=== PATIENT | female | born 1995 | race Caucasian/White ===

== ENCOUNTER 2018-05-15 08:22 | Emergency (ER) | payer OTHER, SELFPAY ==
[2018-05-15 08:23] VITALS: BP 139/98; PULSE 86; RESP 18; TEMP 36.6; O2SAT 98; BMI 26.6
[2018-05-15 09:35] LABS: Absolute Lymphocyte Count 1.39 X10^3/ul (0.83-4.51); Absolute Neutrophil Count 5.8 X10^3/uL (2.0-7.7); Basophil# 0.03 X10^3/uL; Basophil% 0.4 % (0-1); Eosinophil# 0.11 X10^3/uL; Eosinophils% 1.4 % (0-5); Hematocrit 45.2 % (37-47); Hemoglobin 15.3 g/dl (12.0-15.0); Lymphocyte # 1.39 X10^3/ul (4.0); Lymphocyte % 18.3 % (19-41); Mean Corp Hgb Conc 33.8 g/gl (32-36); Mean Corpuscular Hgb 30.6 pg (27.0-32.0); Mean Corpuscular Volume 90.4 fL (81-99); Mean Platelet Vol. 8.9 fl (6.2-12.0); Monocyte# 0.27 X10^3/uL; Monocyte% 3.6 % (0-10); Neutrophil # 5.77 X10^3/uL (2.7-7.7); Platelet Count 358 K/mm3 (150-450); RBC Distribution Width CV 12.3 % (11.6-14.6); RBC Distribution Width SD 40.3 fl (35.1-43.9); White Blood Count 7.6 K/mm3 (4.4-11.0)
[2018-05-15 09:39] LABS: Anion Gap 12 (5-15); BUN 11 mg/dL (7-18); BUN/Creat Ratio 11.8 RATIO (10-20); Calcium,Total 9.3 mg/dL (8.5-10.1); Chloride 107 mmol/L (98-107); Creatinine, Serum 0.93 mg/dL (0.55-1.02); EST Glomerular Filtration Rate 79 mL/min (>60); Est Glom Filt Rate - Afr Amer 96 mL/min (>60); Estimated Creatinine Clearance 88.07 ml/min; Glucose 94 mg/dL (74-106); Potassium 3.7 mmol/L (3.5-5.1); Sodium Level 140 mmol/L (136-145)
[2018-05-15 09:44] LABS: POSITIVE COUNT NO; POSITIVE DIFFERENTIAL NO; POSITIVE MORPHOLOGY NO
[2018-05-15 09:45] LABS: Amphetamine Urine VISTA NEGATIVE (<1000 ng/mL); Barbiturate Urine VISTA NEGATIVE (< 200 ng/mL); Benzodiazepine Urine VISTA NEGATIVE (< 200 ng/mL); Cocaine Urine VISTA NEGATIVE (< 300 ng/mL); Ecstacy Urine VISTA POSITIVE (< 500 ng/mL); Methadone Urine VISTA NEGATIVE (< 300 ng/mL); PCP Urine VISTA NEGATIVE (< 25 ng/mL); THC Urine VISTA NEGATIVE (< 50 ng/mL); Vista UDS pH Range 7
[2018-05-15 09:54] VITALS: RESP 16
--- NOTE | 2018-05-15 09:55 | NURSING ---
CALLING [facility], TALKED TO SADE. SHE WILL CALL BACK WITH A TIME
[2018-05-15 09:57] LABS: Alcohol, Blood (Medical)-Serum < 3.0 mg/dL
[2018-05-15 10:08] LABS: Pregnancy, Serum, hCG Quali. NEGATIVE Negative (0-9 Nonpreg)
--- NOTE | 2018-05-15 10:21 | NURSING ---
MAGNOLIA STUART, WILL BE HERE IN ABOUT 15 MIN
[2018-05-15 10:26] VITALS: RESP 16
--- NOTE | 2018-05-15 10:45 | NURSING ---
SADE, [facility], HERE
--- NOTE | 2018-05-15 12:16 | ED.VISSUMM ---
- ER Visit Summary Date of Service: 05/15/18 Chief Complaint: Depression History of Present Illness: The patient is a 22 F with a history of depression presenting with increased depression and anxiety several weeks. She denies thoughts of self-harm. No thoughts of suicide at all, just anxiety and depression. She is having difficulty functioning at work and school. She denies recent medication changes or any recent major family/financial stress. No hallucinations. Physical Examination: Vitals are within normal limits. She is not in distress. Neck is supple. Heart tones are regular and without murmur. Lungs are clear bilaterally. Abdomen is soft and nontender. No focal or lateralizing neuro findings. She is completely awake and alert and answering questions properly. Thought content is normal. Mood is depressed. Affect is congruent. She has good insight into her problem. She denies suicidal thoughts or ideation. Test Results: Medical screening labs within normal limits Emergency Department Course and Treatment: She was evaluated by crisis. She adamantly denies any thoughts of self-harm. She was not felt to be a suicide risk by the crisis professional her family does not feel that she is at risk for suicide. A safety plan was made and she was made a counseling appointment in 2 days. Her family is comfortable taking her home. She does not appear to require inpatient psychiatric treatment at this time. Treatment Plan: [] Disposition: Home stable condition Impression: Initial encounter depression without suicidal ideation This note was generated with [employer] dictation software. It may contain incorrect words, spelling, and punctuation that were not noted in review of the chart prior to signing ED Disposition - Plan for ED Patient: Chief Complaint: Suicidal Instructions: ED Depression Referrals: Verónica De Los Santos MD [Primary Care Provider] - Additional Instructions: Keep your counseling appointment
[2018-05-15 12:17] VITALS: BP 140/94; PULSE 79; RESP 18; O2SAT 99
--- NOTE | 2018-05-15 12:20 | ED.DCSUM_ITS ---
- ER Visit Summary Date of Service: 05/15/18 Chief Complaint: Depression History of Present Illness: The patient is a 22 F with a history of depression presenting with increased depression and anxiety several weeks. She denies thoughts of self-harm. No thoughts of suicide at all, just anxiety and depressi on. She is having difficulty functioning at work and school. She denies recent medication changes or any recent major family/financial stress. No hallucinations. Physical Examination: Vitals are within normal limits. She is not in distress. Neck is supple. Heart tones are regular and without murmur. Lungs are clear bilaterally. Abdomen is soft and nontender. No focal or lateralizing neuro findings. She is completely awake and alert and answering questions properly. Thought content is normal. Mood is depressed. Affect is congruent. She has good insight into her problem. She denies suicidal thoughts or ideation. Test Results: Medical screening labs within normal limits Emergency Department Course and Treatment: She was evaluated by crisis. She adamantly denies any thoughts of self-harm. She was not felt to be a suicide risk by the crisis professional her family does not feel that she is at risk for suicide. A safety plan was made and she was made a counseling appointment in 2 days. Her family is comfortable taking her home. She does not appear to require inpatient psychiatric treatment at this time. Treatment Plan: [] Disposition: Home stable condition Impression: Initial encounter depression without suicidal ideation This note was generated with [employer] dictation software. It may contain incorrect words, spelling, and punctuation that were not noted in review of the chart prior to signing ED Disposition - Plan for ED Patient: Chief Complaint: Suicidal Instructions: ED Depression Referrals: Verónica De Los Santos MD [Primary Care Provider] - Additional Instructions: Keep your counseling appointment
[2018-05-15 12:29] VITALS: BP 140/94; PULSE 84; RESP 18; O2SAT 99
== END 2018-05-15 12:31 | disposition home or self-care (01) ==
PROVIDERS: Emergency Provider Emergency Medicine; Family Provider Family Medicine; PCP Family Medicine
DX: F32.9 Major depressive disorder, single episode, unspecified (principal); F41.9 Anxiety disorder, unspecified
CPT/HCPCS: 80048; 80307; 80320; 84703; 85025; 99283; G0480

== ENCOUNTER 2018-08-28 17:42 | Emergency (ER) | payer OTHER, SELFPAY ==
[2018-08-28 17:47] VITALS: BP 143/89; PULSE 103; RESP 14; TEMP 36.8; O2SAT 99; BMI 28.1
[2018-08-28 18:20] LABS: Anion Gap 11 (5-15); BUN 12 mg/dL (7-18); BUN/Creat Ratio 14.9 RATIO (10-20); Calcium,Total 9.2 mg/dL (8.5-10.1); Chloride 107 mmol/L (98-107); Creatinine, Serum 0.81 mg/dL (0.55-1.02); EST Glomerular Filtration Rate 93 mL/min (>60); Est Glom Filt Rate - Afr Amer 112 mL/min (>60); Estimated Creatinine Clearance 105.04 ml/min; Glucose 93 mg/dL (74-106); Potassium 3.6 mmol/L (3.5-5.1); Sodium Level 140 mmol/L (136-145)
[2018-08-28 18:24] LABS: Amphetamine Urine VISTA NEGATIVE (<1000 ng/mL); Barbiturate Urine VISTA NEGATIVE (< 200 ng/mL); Benzodiazepine Urine VISTA NEGATIVE (< 200 ng/mL); Cocaine Urine VISTA NEGATIVE (< 300 ng/mL); Ecstacy Urine VISTA NEGATIVE (< 500 ng/mL); Methadone Urine VISTA NEGATIVE (< 300 ng/mL); PCP Urine VISTA NEGATIVE (< 25 ng/mL); THC Urine VISTA NEGATIVE (< 50 ng/mL); Vista UDS pH Range 7
[2018-08-28 18:30] LABS: Absolute Lymphocyte Count 2.12 X10^3/ul (0.83-4.51); Absolute Neutrophil Count 4.1 X10^3/uL (2.0-7.7); Basophil# 0.04 X10^3/uL; Basophil% 0.6 % (0-1); Eosinophil# 0.14 X10^3/uL; Hematocrit 48.1 % (37-47); Hemoglobin 15.7 g/dl (12.0-15.0); Lymphocyte # 2.12 X10^3/ul (4.0); Lymphocyte % 30.6 % (19-41); Mean Corp Hgb Conc 32.6 g/gl (32-36); Mean Corpuscular Hgb 30.4 pg (27.0-32.0); Mean Platelet Vol. 9.1 fl (6.2-12.0); Monocyte# 0.48 X10^3/uL; Monocyte% 6.9 % (0-10); Neutrophil # 4.13 X10^3/uL (2.7-7.7); Neutrophil % 59.6 % (47-70); Platelet Count 339 K/mm3 (150-450); RBC Distribution Width CV 12.4 % (11.6-14.6); RBC Distribution Width SD 42.1 fl (35.1-43.9); Red Blood Count 5.17 M/mm3 (4.2-5.4); White Blood Count 6.9 K/mm3 (4.4-11.0)
[2018-08-28 18:31] LABS: POSITIVE COUNT NO; POSITIVE DIFFERENTIAL NO; POSITIVE MORPHOLOGY NO
[2018-08-28 18:42] VITALS: BP 124/69; PULSE 86; RESP 18; O2SAT 99
--- NOTE | 2018-08-28 18:48 | ED.VISSUMM ---
- ER Visit Summary Date of Service: 08/28/18 Chief Complaint: Depression, suicidal ideation History of Present Illness: The patient is a 22 F presenting with depression, suicidal ideation. Patient states this has been ongoing for the past 2 weeks and progressively worsening. She is under a lot of stress with school. She has had suicidal thoughts with plan to overdose or shoot herself with a gun. She does have access to a gun. No past suicide attempts. She was seen by the counseling center today and sent to the ED for further evaluation. Physical Examination: Vitals are stable. Patient is afebrile. Alert no acute distress. HEENT exam is unremarkable. Neck is supple. Lungs are clear and equal bilaterally. Heart is regular rate and rhythm. Abdomen is soft nontender nondistended. Extremities are unremarkable. Skin is warm and dry. No focal neurologic deficit. Depression, suicidal ideation Remainder of exam is unremarkable. Emergency Department Course and Treatment: CBC, chemistries unremarkable. Tox negative. Alcohol negative. HCG negative. Discussed with the counseling center for evaluation. Disposition: Per counseling center Impression: Suicidal ideation This note was generated with [employer] dictation software. It may contain incorrect words, spelling, and punctuation that were not noted in review of the chart prior to signing ED Disposition - Plan for ED Patient: Referrals: Verónica De Los Santos MD [Primary Care Provider] -
[2018-08-28 19:00] VITALS: PULSE 82; RESP 18; O2SAT 98
[2018-08-28 19:20] LABS: Pregnancy, Serum, hCG Quali. NEGATIVE Negative (0-9 Nonpreg)
[2018-08-28 22:00] VITALS: BP 130/85; PULSE 91; RESP 18; TEMP 36.7; O2SAT 96
[2018-08-28] MEDS: Acetaminophen 500 MG Tablet 1000 MG PO (22:29)
[2018-08-28 23:09] VITALS: RESP 18
[2018-08-29] VITALS (11 sets, daily range): BP systolic 128–134; BP diastolic 68–89; PULSE 82–117; RESP 12–18; TEMP 36.7; O2SAT 97–98
--- NOTE | 2018-08-29 06:10 | ED.RN ---
SITTER REMAINS AT THE BEDSIDE.PT APPEARS TO BE ASLEEP,RESP EVEN.WAITING FOR [facility] TRANSPORT PT.
--- NOTE | 2018-08-29 08:29 | ED.RN ---
[facility] WILL BE COMING FOR PATIENT AT 1600 TO TAKE TO [facility]
[2018-08-29] MEDS: Sertraline 50 MG Tablet 25 MG PO (09:38)
--- NOTE | 2018-08-29 17:03 | ED.RN ---
I CALLED [facility] AT 16:50 TO SEE WHERE THEY WERE BECAUSE THEIR ETA WAS 16:00 AND I HAVENT HEARD FROM THEM. DISPATCH SAID THEY WERE IN [place] AND WOULD BE HEADING UP TO [facility] SHORTLY. THIS IS VERY FRUSTRATING AGAIN WITH [facility]. THEY WERE CALLED LAST NIGHT TO TAKE THE PATIENT AND THEY SAID CALL BACK IN THE AM BUT WE HAVE IT ON THE BOOK. I CALLED AND THEY SAID THEY KNEW NOTHING ABOUT THE TRANSFER AND WOULD NOT BE ABLE TO TAKE THEM UNTIL 16:00. THE PATIENTS FAMILY HAS BEEN NICE AND PATIENT ALL DAY. THIS PATIENT WAS ACCEPTED AND READY TO GO EARLY THIS AM AND HAD TO WAIT ALL DAY FOR A SQUAD. [facility]OON
--- NOTE | 2018-08-29 17:38 | ED.RN ---
[facility] GOT HERE FOR PATIENT AT 17:40. THEY WERE 1 HR 40 MIN. LATE. THE [facility] SAID THIS WAS SCHEDULED FOR 8:00 AM THIS AM AND GOT BUMPED ALL DAY. HE WAS VERY FRUSTRATED.
== END 2018-08-29 17:38 ==
LOC: ED 18:26
PROVIDERS: Emergency Provider Emergency Medicine; Family Provider Family Medicine; PCP Family Medicine
DX: R45.851 Suicidal ideations (principal); F32.9 Major depressive disorder, single episode, unspecified; F41.9 Anxiety disorder, unspecified
CPT/HCPCS: 80048; 80307; 80320; 84703; 85025; 99284; G0480

== ENCOUNTER 2019-03-21 07:21 | Emergency (ER) | payer OTHER, MEDICAID, SELFPAY ==
[2019-03-21 07:22] VITALS: BP 143/76; PULSE 99; RESP 16; TEMP 36.4; O2SAT 98; BMI 31.4
--- NOTE | 2019-03-21 07:29 | ED.VIS.GEN ---
History of Present Illness Chief Complaint: Suicidal Informant: Patient Onset: Days Context: Gradual Onset Timing: Continuous Current Severity: Moderate Maximum Severity: Severe Narrative: The patient has a history of bipolar disorder. She presents to the emergency department with increasing suicidal thoughts. She states over the past few weeks, she is been struggling with this but it has gotten more intrusive. She states that she keeps having thoughts about wanting to harm herself and she has nothing left to live for. She is on Risperdal. She recently had Lexapro added about a week ago, but was still feeling suicidal prior to the addition of this medication. The patient has been hospitalized before for suicidality. At this point, she does not have a specific plan. She states that just is been interfering with her normal functioning. She denies any drug or alcohol use. Prior similar symptoms: Yes Recent Illness/Hospitalization: No Past Medical History - Allergies and Home Meds Allergies/Adverse Reactions: Allergies No Known Allergies Allergy (Verified 03/21/19 07:21) Primary Care Physician: Verónica De Los Santos MD [Primary Care Provider] - Prior records reviewed: Yes Past Medical History: - - Bipolar disorder Smoking Status: Never smoker Review of Systems General: Denies: Chills, Fever, Sweats Eyes: Denies: Visual changes - bilaterally, Diplopia ENT: Denies: Rhinorrhea, Sore throat Cardiovascular: Denies: Chest pain, Palpitations Respiratory: Denies: Dyspnea, Cough, Dyspnea on exertion Gastrointestinal: Denies: Abdominal pain, Nausea, Vomiting, Diarrhea, Melena, Hematochezia Genitourinary: Denies: Dysuria, Hematuria, Frequency Musculoskeletal: Denies: Back pain, Extremity Pain Skin: Denies: Rash, Wounds Neurological: Denies: Headache, Weakness, Numbness Psych: Reports: Depression, Suicidal thoughts, Suicidal ideations Physical Exam Vital Signs/Narrative: Vital Signs Temp Pulse Resp BP Pulse Ox 03/21/19 07:22 97.6 F L 99 16 143/76 H 98 Inital Vital Signs reviewed: Yes General: Well nourished, Well developed, No Acute Distress Head: Normocephalic, Atraumatic Eyes: Perrl, EOMI ENT: Moist mucous membranes, No rhinorrhea Neck: Supple, Nontender Cardiovascular: Regular rate, Regular rhythm, No murmurs Respiratory: No distress, CTA bilaterally, Chest nontender Abdomen: Soft, Nontender, Nondistended, Normal bowel sounds Back: Nontender, Normal Inspection Extremities: Nontender, No edema Skin: Normal color, No rash Neurological: Alert, Oriented x3, Cranial nerves II-XII grossly intact, Normal Strength, Normal Sensation Psychological: Depressed, Tearful Diagnostic/Tx/Re-eval Abnormal Lab Results 03/21/19 03/21/19 03/21/19 07:52 07:52 07:52 WBC 5.6 RBC 5.06 Hgb 15.4 H Hct 46.6 MCV 92.1 MCH 30.4 MCHC 33.0 RDW Std Deviation 40.6 RDW Coeff of Angelia 11.9 Plt Count 298 MPV 8.6 Immature Gran % (Auto) 0.200 Neut % (Auto) 56.9 Lymph % (Auto) 32.4 [place] % (Auto) 6.7 Eos % (Auto) 2.7 Baso % (Auto) 1.1 H Absolute Neuts (auto) 3.2 Absolute Lymphs (auto) 1.80 Nucleated RBC % 0 Sodium 138 Potassium 3.8 Chloride 108 H Carbon Dioxide 21.0 Anion Gap 9 BUN 7 Creatinine 0.79 Estim Creat Clear Calc 102.80 Est GFR (MDRD) Af Amer 114 Est GFR (MDRD) Non-Af 94 BUN/Creatinine Ratio 8.8 L Glucose 106 Calcium 9.2 Serum , Qual Urine Opiates Screen Urine Methadone Screen Ur Barbiturates Screen Ur Phencyclidine Scrn Ur Amphetamines Screen U Methamphetamin-MDMA U Benzodiazepines Scrn Urine Cocaine Screen U Cannabinoids Screen Ur Drug Screen Comment Ethyl Alcohol Cancelled 03/21/19 03/21/19 03/21/19 07:52 07:52 08:52 WBC RBC Hgb Hct MCV MCH MCHC RDW Std Deviation RDW Coeff of Angelia Plt Count MPV Immature Gran % (Auto) Neut % (Auto) Lymph % (Auto) [place] % (Auto) Eos % (Auto) Baso % (Auto) Absolute Neuts (auto) Absolute Lymphs (auto) Nucleated RBC % Sodium Potassium Chloride Carbon Dioxide Anion Gap BUN Creatinine Estim Creat Clear Calc Est GFR (MDRD) Af Amer Est GFR (MDRD) Non-Af BUN/Creatinine Ratio Glucose Calcium Serum , Qual NEGATIVE Urine Opiates Screen NEGATIVE Urine Methadone Screen NEGATIVE Ur Barbiturates Screen NEGATIVE Ur Phencyclidine Scrn NEGATIVE Ur Amphetamines Screen NEGATIVE U Methamphetamin-MDMA NEGATIVE U Benzodiazepines Scrn NEGATIVE Urine Cocaine Screen NEGATIVE U Cannabinoids Screen NEGATIVE Ur Drug Screen Comment Ethyl Alcohol < 3.0 - Medical Decision Making The patient presents with increasing suicidal thoughts. She does not have any specific plan, but she will not contract for safety.-All of her medications because she is worried that she will take them and overdose. She underwent medical screening examination. At this point, she is medically cleared. After discussion with highway maintenance crew worker and evaluation, it was felt the patient would best be served with inpatient hospitalization given her increasing suicidality. Impression 1. Suicidal ideation ED Disposition - Plan for ED Patient: Referrals: Verónica De Los Santos MD [Primary Care Provider] -
[2019-03-21 08:01] LABS: Absolute Neutrophil Count 3.2 X10^3/uL (2.0-7.7); Basophil# 0.06 X10^3/uL; Basophil% 1.1 % (0-1); Eosinophil# 0.15 X10^3/uL; Eosinophils% 2.7 % (0-5); Hematocrit 46.6 % (37-47); Hemoglobin 15.4 g/dL (12.0-15.0); Lymphocyte % 32.4 % (19-41); Mean Corpuscular Hgb 30.4 pg (27.0-32.0); Mean Corpuscular Volume 92.1 fL (81-99); Mean Platelet Vol. 8.6 fl (6.2-12.0); Monocyte# 0.37 X10^3/uL; Monocyte% 6.7 % (0-10); NRBC Flagged by Analyzer 0 % (0-5); Neutrophil # 3.16 X10^3/uL (2.7-7.7); Neutrophil % 56.9 % (47-70); Platelet Count 298 K/mm3 (150-450); RBC Distribution Width CV 11.9 % (11.6-14.6); RBC Distribution Width SD 40.6 fl (35.1-43.9); Red Blood Count 5.06 M/mm3 (4.2-5.4); White Blood Count 5.6 K/mm3 (4.4-11.0)
[2019-03-21 08:11] LABS: Anion Gap 9 (5-15); BUN 7 mg/dL (7-18); BUN/Creat Ratio 8.8 RATIO (10-20); Calcium,Total 9.2 mg/dL (8.5-10.1); Chloride 108 mmol/L (98-107); Creatinine, Serum 0.79 mg/dL (0.55-1.02); EST Glomerular Filtration Rate 94 mL/min (>60); Est Glom Filt Rate - Afr Amer 114 mL/min (>60); Glucose 106 mg/dL (74-106); Potassium 3.8 mmol/L (3.5-5.1); Sodium Level 138 mmol/L (136-145)
[2019-03-21 08:14] LABS: Amphetamine Urine VISTA NEGATIVE (<1000 ng/mL); Barbiturate Urine VISTA NEGATIVE (< 200 ng/mL); Benzodiazepine Urine VISTA NEGATIVE (< 200 ng/mL); Cocaine Urine VISTA NEGATIVE (< 300 ng/mL); Ecstacy Urine VISTA NEGATIVE (< 500 ng/mL); Methadone Urine VISTA NEGATIVE (< 300 ng/mL); PCP Urine VISTA NEGATIVE (< 25 ng/mL); THC Urine VISTA NEGATIVE (< 50 ng/mL); Vista UDS pH Range 5
--- NOTE | 2019-03-21 08:29 | NURSING ---
RED TOP, ALCOHOL , NEEDS REDRAWN
[2019-03-21 08:37] LABS: Internal QC Validated? YES +Cl - CLEAR BKGD; Pregnancy, Serum, hCG Quali. NEGATIVE Negative
[2019-03-21 09:19] LABS: Alcohol, Blood (Medical)-Serum < 3.0 mg/dL
--- NOTE | 2019-03-21 09:24 | NURSING ---
CALLED [facility], THEY WILL BE HERE SOON POSSIBLE
[2019-03-21 10:02] VITALS: PULSE 87; RESP 16; O2SAT 99
[2019-03-21 13:26] VITALS: BP 138/80; PULSE 85; RESP 14; O2SAT 98
[2019-03-21] MEDS: Ibuprofen 600 MG Tablet PO (13:56)
--- NOTE | 2019-03-21 14:48 | NURSING ---
ACCEPTED AT [facility], 1600 UNIT NURSE TO NURSE [phone] LAUREN ATT[address] DR DASILVA
--- NOTE | 2019-03-21 15:10 | NURSING ---
CALLED [facility] FOR TRANSPORT, NONE TODAY CALLED [facility] FOR TRANSPORT. ETA IS FROM [place]
[2019-03-21 15:11] VITALS: BP 138/80; PULSE 85; RESP 14; O2SAT 98
[2019-03-21] MEDS: LORazepam 1 MG Tablet PO (15:17)
[2019-03-21 15:18] VITALS: RESP 16
== END 2019-03-21 15:48 ==
PROVIDERS: Emergency Provider Emergency Medicine; Family Provider Family Medicine; PCP Family Medicine
DX: R45.851 Suicidal ideations (principal); F31.9 Bipolar disorder, unspecified
CPT/HCPCS: 80048; 80307; 80320; 84703; 85025; 99285; G0480

== ENCOUNTER 2019-05-23 23:08 | Emergency (ER) | payer OTHER, SELFPAY ==
[2019-05-23 23:11] VITALS: BP 125/91; PULSE 92; RESP 16; TEMP 37.1; O2SAT 95; BMI 31.6
--- NOTE | 2019-05-23 23:22 | ED.RN ---
pt denies SI at this time. States she said she wanted to during a fight with her boyfriend. pt states she said those things out of anger and did not really mean them. Pt denies any safety concerns for her at home. Denies any thoughts of wanting to harm or kill herself.
--- NOTE | 2019-05-23 23:33 | ED.VIS.PSYCH ---
History of Present Illness Chief Complaint: Mental Health Informant: Patient, Family Onset: Today Context: Sudden Onset Conflict: - - verbal argument w/ boyfriend Timing: Continuous Current Severity: Gone Maximum Severity: Moderate Worsened by: Situational factors Associated Symptoms: Negative for: Change in Eating, Change in sleeping, Hopelessness, Suicidal Thoughts, Agitated, Angry, Hostile, Visual Hallucinations, Auditory Hallucinations Specific plan (suicidal thought): none Narrative: Patient was having an argument with her boyfriend laurel, said that she wanted to . Boyfriend called 911 had a concern for her safety. She has a history of mental health, takes an antidepressant, routinely seen at the counseling center, and has been admitted for suicidality in the past. She has not been drinking tonight, does not do any drugs, has been compliant with her antidepressant and had taken no more than prescribed tonight. She denies being suicidal at this time and states it was regretful, it made in the heat of the moment of the argument. Spoken to separately, her boyfriend confirms this. When asked if she could be manipulating us to discharge her home so that she could kill herself, he does not think this will happen. They have spoken since being brought to the ER prior to my evaluation and they feel they have worked things out and they both prefer to be discharged home at this time. - Past Medical History (1) Depression Status: Chronic Past Medical History - Allergies and Home Meds Allergies/Adverse Reactions: Allergies No Known Allergies Allergy (Verified 05/23/19 23:20) Primary Care Physician: Verónica De Los Santos MD [Primary Care Provider] - Lives: Spouse/ Significant Other Smoking Status: Never smoker Drugs: None Review of Systems General: Denies: Chills, Fever, Sweats Eyes: Denies: Visual changes - bilaterally, Diplopia ENT: Denies: Rhinorrhea, Sore throat Cardiovascular: Denies: Chest pain, Palpitations Respiratory: Reports: Cough. Denies: Dyspnea, Sputum, Dyspnea on exertion Gastrointestinal: Denies: Abdominal pain, Nausea, Vomiting, Diarrhea, Melena, Hematochezia Genitourinary: Denies: Dysuria, Hematuria, Frequency Musculoskeletal: Denies: Neck pain, Back pain, Extremity Pain Skin: Denies: Rash, Wounds Neurological: Denies: Headache, Weakness, Numbness Psych: Reports: Depression. Denies: Suicidal thoughts, Suicidal ideations Physical Exam Vital Signs/Narrative: Vital Signs Temp Pulse Resp BP Pulse Ox 05/23/19 23:11 98.7 F 92 16 125/91 H 95 Inital Vital Signs reviewed: Yes General: Well nourished, Well developed, - - NAD Head: Normocephalic, Atraumatic Eyes: Perrl, EOMI ENT: Moist mucous membranes, No rhinorrhea Neck: Supple, Nontender, No lymphadenopathy Cardiovascular: Regular rate, Regular rhythm, No murmurs Respiratory: No distress, CTA bilaterally, Chest nontender Abdomen: Soft, Nontender, Nondistended, Normal bowel sounds Back: Nontender, Normal Inspection Extremities: Nontender, No Edema Skin: Normal color, No rash, No Trauma Neurological: Alert, Oriented x3, Cranial nerves II-XII grossly intact, Normal Strength, Normal Sensation, Normal Gait Psych: Normal Speech Pattern, Logical sequential goal directed thoughts, No suicidal or homicidal ideation, Normal Stable Appropriate Affect, Good Insight, Good Judgement, Normal Appearance - and good eye contact Diagnostic/Tx/Re-eval I am comfortable with the boyfriend taking her home. The patient was questioned separately, there is no suspicion for abuse here tonight. She corroborates her story separately, and is comfortable calling crisis if she needs to, comfortable following up with her counselor, and additionally tells us if I was feeling suicidal I would tell you because I would want help, but I am not and I feel better now. ED Disposition - Plan for ED Patient: Disposition: Home or Assisted Living Diagnosis: Acute reaction to situational stress Instructions: Responding Better to Stress Referrals: Counseling,Center [GROUP OF PHYSICIANS] - As Needed
--- NOTE | 2019-05-23 23:34 | ED.RN ---
Dr Curtis at bedside for assessment. Dr Curtis does not feel patient is suicidal and feels that patient is safe to be discharged home with boyfriend and friend. patient and boyfriend is in agreement with this plan. Pt understands to call crisis or 911 if she becomes suicidal or feels unsafe. pt verbalizes understanding.
== END 2019-05-24 00:03 | disposition home or self-care (01) ==
PROVIDERS: Emergency Provider Emergency Medicine; Family Provider Family Medicine; PCP Family Medicine
DX: F43.0 Acute stress reaction (principal); R45.851 Suicidal ideations; F32.9 Major depressive disorder, single episode, unspecified
CPT/HCPCS: 99285

== ENCOUNTER 2019-08-11 12:32 | Emergency (ER) | payer OTHER, MEDICAID, SELFPAY ==
[2019-08-11 12:33] VITALS: BP 127/92; PULSE 125; RESP 17; TEMP 37.4; O2SAT 97; BMI 31.1
--- NOTE | 2019-08-11 13:20 | ED.DCSUM_ITS ---
History of Present Illness Chief Complaint: Suicidal Informant: Patient Onset: Weeks - 1 Context: Gradual Onset Timing: Continuous Current Severity: Moderate Maximum Severity: Moderate Worsened by: Situational factors Associated Symptoms: Depressed, Hopelessness, Suicidal Thoughts Specific plan (suicidal thought): no plan or active ideation Narrative: Patient had a routine appointment with her counselor at the counseling center today, they caught her before hand and asked her if she felt safe and she felt obligated to see no, so she was referred to the emergency department for further evaluation. Patient states she has been having really vivid, bad dreams lately that are telling her that she is useless and hopeless, more depressing thoughts. It has been making her have thoughts of suicide lately without any specific plan or active intent but she states that the dreams seem to be the major issue. She has battled with depression for a long time, she has been on Lexapro for it but it was not working and show several weeks ago with discontinued and she was started on Risperdal and Abilify instead. She denies any physical illness lately or head injury or neck swelling/pain. States she has been tested for thyroid issues in the past and the tests have turned out normal. - Past Medical History (1) Depression Status: Chronic Past Medical History - Allergies and Home Meds Allergies/Adverse Reactions: Allergies No Known Allergies Allergy (Verified 08/11/19 12:33) Primary Care Physician: Verónica De Los Santos MD [Primary Care Provider] - Lives: Spouse/ Significant Other Smoking Status: Never smoker Drugs: None Review of Systems General: Denies: Chills, Fever, Sweats Eyes: Denies: Visual changes - bilaterally, Diplopia ENT: Denies: Rhinorrhea, Sore throat Cardiovascular: Denies: Chest pain, Palpitations Respiratory: Denies: Dyspnea, Cough, Dyspnea on exertion Gastrointestinal: Denies: Abdominal pain, Nausea, Vomiting, Diarrhea, Melena, Hematochezia Genitourinary: Denies: Dysuria, Hematuria, Frequency Musculoskeletal: Denies: Back pain, Extremity Pain Skin: Denies: Rash, Wounds Neurological: Denies: Headache, Weakness, Numbness Psych: Reports: Depression, Suicidal thoughts. Denies: Suicidal ideations Physical Exam Vital Signs/Narrative: Vital Signs Temp Pulse Resp BP Pulse Ox 08/11/19 12:33 99.4 F H 125 H 17 127/92 H 97 Inital Vital Signs reviewed: Yes General: Well nourished, Well developed, - - Well-appearing, cooperative, conversive, no acute distress Head: Normocephalic, Atraumatic Eyes: Perrl, EOMI ENT: Moist mucous membranes, No rhinorrhea Neck: Supple, Nontender Cardiovascular: Regular rate, Regular rhythm, No murmurs Respiratory: No distress, CTA bilaterally, Chest nontender Abdomen: Soft, Nontender, Nondistended, Normal bowel sounds Back: Nontender, Normal Inspection Extremities: Nontender, No Edema Skin: Normal color, No rash Neurological: Alert, Oriented x3, Cranial nerves II-XII grossly intact, Normal Strength, Normal Sensation Psych: Normal Speech Pattern, Logical sequential goal directed thoughts, No suicidal or homicidal ideation, Good Insight, Good Judgement, Normal Appearance, Suicidal thoughts Diagnostic/Tx/Re-eval Social work interviewed the patient. After lengthy evaluation, she and the both sign a safety contract. She is comfortable going home. They both agree that she can visit her at work if she feels she is really needing to talk to somebody in a pinch. His work is local. She also has Vistaril at home to use as needed, but she has not been using any of it. Therefore she was educated on using that as well if she needs to. She is going to be seen by behavioral health tomorrow and the counseling center the next day. We discussed reasons to return. ED Disposition - Plan for ED Patient: Disposition: Home or Assisted Living Diagnosis: Depression, Suicidal thoughts Instructions: CONTRACT, No Harm, Depression Referrals: Verónica De Los Santos MD [Primary Care Provider] - Behavioral,Health [facility] [GROUP OF PHYSICIANS] - Keep [facility] appointment Counseling,Center [GROUP OF PHYSICIANS] - Keep [facility] appointment
[2019-08-11 13:33] VITALS: RESP 16
[2019-08-11 14:00] VITALS: RESP 16
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
--- NOTE | 2019-08-14 13:35 | CM.ED ---
Social Work Telephone call to patient for follow-up. Patient stating to have attended intake appointment on 08/12/2019 with Behavioral health and plans to start to program tomorrow. Roma SUAREZ, BLADE
== END 2019-08-11 14:08 | disposition home or self-care (01) ==
PROVIDERS: Emergency Provider Emergency Medicine; PCP Family Medicine
DX: F32.9 Major depressive disorder, single episode, unspecified (principal); R45.851 Suicidal ideations; Z79.899 Other long term (current) drug therapy
CPT/HCPCS: 99282

== ENCOUNTER 2019-08-18 09:00 | Outpatient (RCR) | payer OTHER, SELFPAY ==
--- NOTE | 2019-08-18 09:00 | BH.COMM_ITS ---
Communication Note - Communication with Client Communication Note: Met with patient to complete intial paperwork No significant changes since pre-admission screening. Completed [place] Suicide screening. Moderate risk to self. Denied active suicidal ideations, plan, or intent. No hx of attempts. Notes SI on 08/10/19 which she presentedf to the ER. Fleeting SI 2-5 times a week. Protective factors are big deterent.
--- NOTE | 2019-08-18 09:05 | BH.SGPN.GN ---
Behaviors/Verbalizations/Mental Status: []Pt alert and orient x3. Eye contact fair to good. Motor activity is appropriate. Appearance is casual. Speech is Appropriate. Mood is depressed, anxious. Affect is congruent. Thoughts are linear and logical. No evidence of psychosis. Reviewed daily check in sheet and pt reports score of 4/5 for suicidal ideations and 2/5 for intent. Baseline unknown as pt first day in program. Willing to follow-up with program schedule clerk for further risk assessment. Client Response/Progress/Benefit: []Pt attentive throughout session. Actively listening throughout. Upon her turn to share with the group she became tearful and opted not to participate. Appearing to benefit from support provided by group. Pt recommended continued IOP tx to reduce anxiety and depression, improve emotion regulation, and maintain safety. Narrative Note: []
--- NOTE | 2019-08-18 10:05 | BH.COMM_ITS ---
Communication Note - Communication with Client Communication Note: Pt was tearful after first group and attempted to leave the facility. She was stopped by therapist and brought to this therapist's office. Tearful. States that she does not want to be here. When asked where she wants to be she states in the hospital. Verbalized SI with plan to OD on her medications. She did not verbalize this earlier during the [place] screening. Reports that group was overhwelming and states that she is hopeless and feels that she will not get better. She would not elaborate much more. Collateral from staff indicates that group was uneventful. This therapist walked pt over to the ER and provided report. Recommended inpatient admission.
--- NOTE | 2019-08-18 14:13 | BH.DS ---
Discharge Summary - Demographics Date of Admission:: 08/18/19 Discharge Date: 08/18/19 Presenting Problems at Admission:: Pt is a 23 year old female with reported hx of Bipolar 2 disorder. Hx of two previous psychiatric admissions in 08/2018 and 02/2019. Referred to IOP by [facility] ER after crisis assessment on 08/11/2019. Presented to ER on 08/11/19 with fleeting suicidal ideations which began a day prior. Reports intrusive images of her father's as the triggering event. Pt's father in 02/2019 and has been having difficulty coping. Negative thoughts and fleeting suicidal ideations which she reports are more passive in nature I don't want to exist. Reports that they were more frequent and intense which led to presenting to the ER. Depression and anxiety began to impact functioning at home and work. Due to poor work performance her hours were cut which also impacts her financially. Endorses two panic attacks in the past 2 weeks. Endorses ruminations, poor concentration, hopelessness, helplessness, and anhedonia. Denies HI or psychosis. Denies substance abuse. No hx of suicide attempts. Medication and treatment compliant. Currently lives with BF who is supportive. Reports feeling low and unsafe at times. Due to recent ER evaluation, fleeting suicidal ideations, and MH interfering with functioning recommended IOP. Discharge Diagnoses:: F31.81, Bipolar 2 Reason for Discharge:: Pt was discharged to a higher level of care. Reported SI with plan and was escorted by staff to the ER for evaluation and placement at psychiatric facility - Treatment Progress During Treatment & Response: No progress noted. Pt only attended one IOP group.Pt was tearful after first group and attempted to leave the facility. She was stopped by therapist and brought to this therapist's office. Tearful. States that she does not want to be here. When asked where she wants to be she states in the hospital. Verbalized SI with plan to OD on her medications. She did not verbalize this earlier during the [place] screening. Reports that group was overhwelming and states that she is hopeless and feels that she will not get better in the outaptient setting. She would not elaborate much more. Collateral from staff indicates that group was uneventful. This therapist walked pt over to the ER and provided report. Recommended inpatient admission. Issues Still to be Addressed:: Depression, Anxiety, poor coping skills, grief, suicidal ideations, inability to function due to MH symptoms Discharge Recommendations/Instructions:: Recommended to be placed in inpatient psychiatric facility Discharge Handout: Complete Discharge Handout with client on aftercare options and continuity of care.
== END 2019-08-18 10:30 | disposition short-term general hospital (02) ==
LOC: BHIOP 09:00
PROVIDERS: PCP Family Medicine; Referring Provider Psychiatry & Neurology Psychiatry; Visit Provider Psychiatry & Neurology Psychiatry
DX: F31.81 Bipolar II disorder (principal)
CPT/HCPCS: H0035; 90853

== ENCOUNTER 2019-08-18 10:23 | Emergency (ER) | payer OTHER, MEDICAID, SELFPAY ==
[2019-08-18 10:24] VITALS: BP 134/95; PULSE 133; RESP 18; TEMP 36.1; O2SAT 99; BMI 30.7
[2019-08-18 11:13] LABS: Absolute Lymphocyte Count 1.54 X10^3/uL (0.83-4.51); Absolute Neutrophil Count 3.8 X10^3/uL (2.0-7.7); Basophil# 0.05 X10^3/uL; Basophil% 0.8 % (0-1); Eosinophil# 0.13 X10^3/uL; Eosinophils% 2.2 % (0-5); Hematocrit 46.2 % (37-47); Hemoglobin 15.7 g/dL (12.0-15.0); Lymphocyte # 1.54 X10^3/ul (4.0); Lymphocyte % 26.1 % (19-41); Mean Corpuscular Hgb 30.9 pg (27.0-32.0); Mean Corpuscular Volume 90.9 fL (81-99); Mean Platelet Vol. 8.8 fl (6.2-12.0); Monocyte# 0.33 X10^3/uL; Monocyte% 5.6 % (0-10); NRBC Flagged by Analyzer 0 % (0-5); Neutrophil # 3.82 X10^3/uL (2.7-7.7); Platelet Count 351 K/mm3 (150-450); RBC Distribution Width CV 11.8 % (11.6-14.6); Red Blood Count 5.08 M/mm3 (4.2-5.4); White Blood Count 5.9 K/mm3 (4.4-11.0)
--- NOTE | 2019-08-18 11:14 | ED.DCSUM_ITS ---
- ER Visit Summary Date of Service: 08/18/19 Chief Complaint: Suicidal ideation History of Present Illness: The patient is a 23 F presenting with suicidal ideation. She states this has been ongoing for the past week. She was seen in the ED 1 week ago. At that time she was seen by the counselor and discharged with a safety contract. She states that she still continues to be suicidal. She followed up with outpatient program today. She states that it was not a good fit. She was brought over by the counselor because they felt she was unsafe to go home. She has had thoughts of overdosing. She denies other complaints. Physical Examination: Vitals are stable. Patient is afebrile. Alert no acute distress. HEENT exam is unremarkable. Neck is supple. Lungs are clear and equal bilaterally. Heart is regular rate and rhythm. Abdomen is soft nontender nondistended. Extremities are unremarkable. Skin is warm and dry. No focal neurologic deficit. Depressed affect, suicidal ideation Remainder of exam is unremarkable. Emergency Department Course and Treatment: CBC, chemistries unremarkable. hCG negative. Tox and alcohol are negative. Patient was evaluated by the family welfare social work professor in the ED. Disposition: Per social work Impression: Suicidal ideation This note was generated with [employer] dictation software. It may contain incorrect words, spelling, and punctuation that were not noted in review of the chart prior to signing ED Disposition - Plan for ED Patient: Referrals: Verónica De Los Santos MD [Primary Care Provider] -
[2019-08-18 11:24] LABS: Internal QC Validated? YES +Cl - CLEAR BKGD; Pregnancy, Serum, hCG Quali. NEGATIVE Negative
[2019-08-18 11:26] LABS: Amphetamine Urine VISTA NEGATIVE (<1000 ng/mL); Anion Gap 9 (5-15); BUN 9 mg/dL (7-18); BUN/Creat Ratio 10.5 RATIO (10-20); Barbiturate Urine VISTA NEGATIVE (< 200 ng/mL); Benzodiazepine Urine VISTA NEGATIVE (< 200 ng/mL); Calcium,Total 9.5 mg/dL (8.5-10.1); Chloride 108 mmol/L (98-107); Cocaine Urine VISTA NEGATIVE (< 300 ng/mL); Creatinine, Serum 0.86 mg/dL (0.55-1.02); EST Glomerular Filtration Rate 86 mL/min (>60); Ecstacy Urine VISTA NEGATIVE (< 500 ng/mL); Est Glom Filt Rate - Afr Amer 104 mL/min (>60); Estimated Creatinine Clearance 94.43 ml/min; Glucose 106 mg/dL (74-106); Methadone Urine VISTA NEGATIVE (< 300 ng/mL); PCP Urine VISTA NEGATIVE (< 25 ng/mL); Potassium 3.8 mmol/L (3.5-5.1); Sodium Level 140 mmol/L (136-145); THC Urine VISTA NEGATIVE (< 50 ng/mL); Vista UDS pH Range 5
[2019-08-18 11:41] LABS: Alcohol, Blood (Medical)-Serum < 3.0 mg/dL
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
--- NOTE | 2019-08-18 12:02 | CM.ED ---
Social Work Telephone call to [facility] (intake). Referral made. There are open beds and they do accept patient insurance. Clinical information faxed. Pending response. Roma SUAREZ, BLADE
--- NOTE | 2019-08-18 13:08 | CM.ED ---
Social Work Telephone call from [facility] Leon, patient has been accepted. Accepting physician: Dr. Jessica Tobin. Nurse to nurse report: [phone]. Admitting to [address] [place] [address]. Updated patient and medical team. All agreeable to plan. [place] faxed to [facility]irae Leon. Roma SUAREZ, BLADE
[2019-08-18 13:37] VITALS: BP 127/88; PULSE 112; RESP 16; O2SAT 98
--- NOTE | 2019-08-18 15:11 | ED.RN ---
JANETH JIN TOOK KEYS AND WALLET PER PT REQUEST.
== END 2019-08-18 15:15 ==
LOC: ED 10:51
PROVIDERS: Emergency Provider Emergency Medicine; PCP Family Medicine
DX: R45.851 Suicidal ideations (principal); F31.9 Bipolar disorder, unspecified; F41.9 Anxiety disorder, unspecified
CPT/HCPCS: 80048; 80307; 80320; 84703; 85025; 99284; G0480

== ENCOUNTER → 2019-10-31 20:16 | Outpatient (CLI) | payer MEDICAID, SELFPAY | PROVIDERS: PCP Family Medicine; Referring Provider Family Medicine; Visit Provider Family Medicine | DX: G47.10 Hypersomnia, unspecified (principal); G47.30 Sleep apnea, unspecified | CPT/HCPCS: 95810 ==

== ENCOUNTER 2019-12-12 12:51 | Emergency (ER) | payer MEDICAID, SELFPAY ==
[2019-12-12 12:52] VITALS: BP 113/76; PULSE 100; RESP 18; TEMP 36.6; O2SAT 97; BMI 31.9
--- NOTE | 2019-12-12 13:20 | ED.DCSUM_ITS ---
- ER Visit Summary Date of Service: 12/12/19 Chief Complaint: Intermittent dizziness History of Present Illness: The patient is a 24 F history of underlying depression and recently started 2 months ago on atenolol for hypertension. Patient states she has had intermittent dizziness which she describes as li ghtheadedness and near syncope for the last 2 days. She denies any headache, chest pain, shortness of breath, abdominal pain. She denies any nausea, vomiting or diarrhea. Denies any dysuria. Denies any fever or chills. States her last menstrual period was November 16. She denies any vaginal bleeding or discharge. Physical Examination: Well-appearing 24-year-old female no acute distress vital signs stable afebrile. Her blood pressure is 113/76 and her pulse ox 97% on room air no hypoxia. HEENT exam normal. No trauma. Pupils round reactive light. Normal speech. Moist mucous membranes. Neck nontender no lymphadenopathy. Lungs clear to auscultation bilaterally. Heart regular rhythm no murmur. Abdomen soft nontender normal bowel sounds no peritoneal signs. Remedies moves all 4. Calves nontender no edema no cords. Neurologically she is awake alert with no focal motor deficits. NIH score is 0. Fingertip to nose and [id number] all within normal limits. Equal symmetrical splash line operator strength and dorsi and plantar flexion. Test Results: None Emergency Department Course and Treatment: Patient has a completely normal exam. She has had recent testing that was unremarkable. She will log her blood pressures at home and follow-up with her primary care physician. Treatment Plan: Outpatient follow-up. Log blood pressures twice daily. Disposition: Discharge Impression: Transient lightheadedness of uncertain etiology History of hypertension History of depression This note was generated with [employer] ([email or web address]) dictation software. It may contain incorrect words, spelling, and punctuation that were not noted in review of the chart prior to signing ED Disposition - Plan for ED Patient: Referrals: Verónica De Los Santos MD [Primary Care Provider] -
--- NOTE | 2019-12-12 13:23 | ED.DEP ---
ED Disposition - Plan for ED Patient: Disposition: Home or Assisted Living Instructions: ED Dizziness UKO Referrals: Verónica De Los Sanots MD [Primary Care Provider] - 1 Week Additional Instructions: Check and log your blood pressures twice daily for the next week. Call and follow-up with your doctor next week. She will read the blood pressure readings to determine if she may or may not need to adjust your blood pressure medication.
[2019-12-12 13:51] VITALS: RESP 16
== END 2019-12-12 13:51 | disposition home or self-care (01) ==
PROVIDERS: Emergency Provider Emergency Medicine; PCP Family Medicine
DX: R42 Dizziness and giddiness (principal); F32.9 Major depressive disorder, single episode, unspecified; I10 Essential (primary) hypertension
CPT/HCPCS: 99282

== ENCOUNTER 2019-12-29 17:51 | Emergency (ER) | payer MEDICAID, SELFPAY ==
[2019-12-29 17:52] VITALS: BP 127/89; PULSE 125; RESP 18; TEMP 36.4; O2SAT 98; BMI 31.4
[2019-12-29 18:15] VITALS: BP 119/87; PULSE 96; RESP 17; O2SAT 96
--- NOTE | 2019-12-29 18:39 | EKG12_ITS ---
Test Reason : CHEST PAIN Blood Pressure : / mmHG Vent. Rate : 101 BPM Atrial Rate : 101 BPM P-R Int : 114 ms QRS Dur : 084 ms QT Int : 332 ms P-R-T Axes : 031 050 -11 degrees QTc Int : 430 ms Sinus tachycardia Nonspecific T wave abnormality Abnormal ECG Confirmed by ANAHI SOTO, SENTHIL ([id number]), greeting card editor RICARDO ZAMORA ([id number]) on 12/31/2019 10:12:37 AM Referred By: MARSHALL Confirmed By:SENTHIL CHRISTIAN MD
--- NOTE | 2019-12-29 19:28 | RAD_ITS ---
STUDY: X-RAY CHEST REASON FOR EXAM: Female, 24 years old. Dizziness TECHNIQUE: Frontal view of the chest COMPARISON: None. FINDINGS: The lungs are clear. There are no pleural effusions. There is no pneumothorax. The heart is normal in size. The visualized osseous structures are within normal limits. RAD/Chest 1 View (Portable) IMPRESSION: No acute thoracic pathology. Electronically Signed: Daniel Toscano, at 19:57 EDT Tel , Service support ,
[2019-12-29 20:15] LABS: AST(SGOT) 49 U/L (15-37); Alanine Aminotransfer ALT/SGPT 76 U/L (13-56); Albumin, Serum 3.7 g/dL (3.2-5.0); Alkaline Phosphatase 86 U/L (45-117); Anion Gap 8 (5-15); BUN 7 mg/dL (7-18); BUN/Creat Ratio 9.2 RATIO (10-20); Chloride 109 mmol/L (98-107); Creatinine, Serum 0.76 mg/dL (0.55-1.02); EST Glomerular Filtration Rate 98 mL/min (>60); Est Glom Filt Rate - Afr Amer 118 mL/min (>60); Estimated Creatinine Clearance 105.93 ml/min; Globulin 3.7 g/dL (2.2-4.2); Glucose 89 mg/dL (74-106); Protein, Total 7.4 g/dL (6.4-8.2); Sodium Level 139 mmol/L (136-145)
[2019-12-29 20:20] LABS: Absolute Lymphocyte Count 2.42 X10^3/uL (0.83-4.51); Absolute Neutrophil Count 5.3 X10^3/uL (2.0-7.7); Basophil# 0.04 X10^3/uL; Basophil% 0.5 % (0-1); Eosinophil# 0.11 X10^3/uL; Eosinophils% 1.3 % (0-5); Hematocrit 42.2 % (37-47); Hemoglobin 14.2 g/dL (12.0-15.0); Lymphocyte # 2.42 X10^3/ul (4.0); Lymphocyte % 28.9 % (19-41); Mean Corp Hgb Conc 33.6 g/dL (32-36); Mean Corpuscular Hgb 31.1 pg (27.0-32.0); Mean Corpuscular Volume 92.3 fL (81-99); Mean Platelet Vol. 8.8 fl (6.2-12.0); Monocyte# 0.46 X10^3/uL; Monocyte% 5.5 % (0-10); NRBC Flagged by Analyzer 0 % (0-5); Neutrophil # 5.33 X10^3/uL (2.7-7.7); Neutrophil % 63.6 % (47-70); Platelet Count 355 K/mm3 (150-450); RBC Distribution Width CV 11.7 % (11.6-14.6); RBC Distribution Width SD 39.5 fl (35.1-43.9); Red Blood Count 4.57 M/mm3 (4.2-5.4); White Blood Count 8.4 K/mm3 (4.4-11.0)
[2019-12-29 20:32] LABS: D-Dimer Quantitative (DVT/PE) 0.32 FEU/ug/m (0.27-0.49)
[2019-12-29 20:48] LABS: Internal QC Validated? YES +Cl - CLEAR BKGD; Pregnancy, Serum, hCG Quali. NEGATIVE Negative
[2019-12-29] MEDS: Aspirin 81 MG TAB.CHEW 324 MG PO (20:52)
[2019-12-29 21:14] VITALS: BP 122/90; BP 124/88; BP 135/95; PULSE 103; PULSE 120; PULSE 94
[2019-12-29 21:24] LABS: Mucous, Urine 0 SEEN /hpf (<or=2+); Red Blood Cells-Urine 0 SEEN /hpf (0-5); White Blood Cells 0 SEEN /hpf (0-5)
[2019-12-29 21:29] LABS: Color, Urine Yellow (Yellow); Glucose, Dipstick Normal (Normal); Ketone-Dipstick Negative (Negative); Leukocyte Esterase-Dipstick Negative /ul (Negative); Nitrite-Dipstick Negative (Negative); Occult Blood-Urine Negative /ul (Negative); Protein-Dipstick Negative (Negative); Urine Bilirubin Dipstick Negative (Negative); Urine Clarity Clear (Clear); Urine Urobilinogen Normal (Normal)
[2019-12-29 21:39] LABS: Bacteria 1+ /hpf (None Seen); Squamous Epithelial Cells - UA 0-5 SEEN /hpf (5-10)
--- NOTE | 2019-12-29 22:25 | ED.VISSUMM ---
- ER Visit Summary Date of Service: 12/29/19 Chief Complaint: Near syncope History of Present Illness: The patient is a 24 F who presents with a near syncopal episode that occurred at work. Patient states she has had a couple prior episodes that occurred while she was at work. Patient states she felt lightheaded and felt like she was going to pass out. Patient states she felt her heart racing. Patient admits to some nausea and vomiting. Patient states she felt hot. Patient states she also felt weak. Patient admits to a headache. Patient denies any chest pain or shortness of breath. Patient has a history of hypertension, anxiety, depression, and bipolar disorder. Physical Examination: Vital signs are stable except for mild tachycardia of 125. Patient is afebrile. Patient is in no acute distress. Oral mucosa is pink and moist. Neck is supple. Trachea is midline. There is no JVD noted. Heart was regular rate and rhythm. Lungs are clear and equal bilaterally. Abdomen is soft. Bowel sounds are normal. There is no tenderness. There is no rebound or guarding noted. Skin is warm dry. Cranial nerves II through XII are intact. There are no focal motor or sensory deficits noted. Extremities are intact. There is no calf tenderness or edema. Test Results: EKG showed normal sinus rhythm with a rate of 101. There are nonspecific ST-T wave changes. There are no prior EKGs available for comparison. CBC, comprehensive metabolic profile, urinalysis, d-dimer, serum hCG, and troponin were obtained were all within normal limits. Chest x-ray was obtained. There is no acute cardiopulmonary process. This was interpreted by the radiologist and myself. Emergency Department Course and Treatment: Patient was given IV fluids. Patient was given aspirin. Orthostatic vital signs were obtained were within normal limits. Patient was feeling better on reevaluation. Patient was advised of her findings. Patient was instructed to follow-up with her primary care physician for further evaluation. Patient was advised that she may need to see either a neurologist or supervisor type bar and segment for further evaluation if her symptoms persist. Patient understood and was agreeable with the plan. All questions were answered. Disposition: Discharge home Impression: Near syncope This note was generated with [employer] dictation software. It may contain incorrect words, spelling, and punctuation that were not noted in review of the chart prior to signing ED Disposition - Plan for ED Patient: Disposition: Home or Assisted Living Diagnosis: Near syncope Instructions: ED Near-Fainting Uncertain Cause Referrals: Verónica De Los Santos MD [Primary Care Provider] - 5-7 Days
[2019-12-29 22:40] VITALS: BP 122/78; PULSE 85; RESP 22; O2SAT 98
== END 2019-12-29 22:44 | disposition home or self-care (01) ==
PROVIDERS: Emergency Provider Emergency Medicine; PCP Family Medicine
DX: R55 Syncope and collapse (principal); R51 Headache; I10 Essential (primary) hypertension; F41.9 Anxiety disorder, unspecified; F31.9 Bipolar disorder, unspecified
CPT/HCPCS: 36415; 71045; 80053; 81001; 84703; 85025; 85379; 93005; 96360; 99284; A4216

== ENCOUNTER → 2020-01-08 13:27 | Outpatient (CLI) | payer MEDICAID, SELFPAY ==
[2019-12-29 17:52] VITALS: BMI 31.4
[2020-01-08 15:43] LABS: AST(SGOT) 52 U/L (15-37); Alanine Aminotransfer ALT/SGPT 85 U/L (13-56); Albumin, Serum 3.8 g/dL (3.2-5.0); Alkaline Phosphatase 91 U/L (45-117); Bilirubin, Direct 0.18 mg/dL (0.00-0.30); Globulin 3.7 g/dL (2.2-4.2); Protein, Total 7.5 g/dL (6.4-8.2); Thyroid Stim Hormone (TSH) 1.03 uIU/mL (0.358-3.74)
== END ==
PROVIDERS: PCP Family Medicine; Visit Provider Family Medicine
DX: R55 Syncope and collapse (principal); R74.8 Abnormal levels of other serum enzymes
CPT/HCPCS: 36415; 80076; 84443

== ENCOUNTER → 2020-02-26 14:09 | Outpatient (CLI) | payer MEDICAID, SELFPAY ==
--- NOTE | 2020-02-26 14:14 | US_ITS ---
STUDY: ULTRASOUND OF THE FEMALE PELVIS - COMPLETE REASON FOR EXAM: Female, 24 years old. PAIN IN VAGINAL CANAL LMP: 01/31/2020 TECHNIQUE: Transabdominal and Transvaginal TECHNICAL QUALITY: Adequate. COMPARISON: None. FINDINGS: The uterus is anteverted and is in a midline position. The uterus measures 5.6 cm x 3.2 cm x 2.7 cm. Normal uterine cervix. The endometrium measures 2.0 mm in thickness, and is hyperechoic. There is no demonstrated endometrial mass. There is no demonstrated myometrial mass. I.U.D. - The patient does not have an I.U.D. The right ovary is visualized. The right ovary measures 2 cm x 2.4 cm x 1.1 cm. There is no right ovarian cyst or ovarian mass. There is no visualized right adnexal mass or complex lesion. There is normal arterial and normal venous vascularity. The left ovary is non-visualized. There is minimal fluid in the cul-de-sac. The pre void volume of the bladder was 207 ml. Polycystic ovary disease: No. US/Transvaginal Non- IMPRESSION: Normal female pelvis. Electronically Signed: Cam Perdomo, at 15:35 EDT , Service support ,
--- NOTE | 2020-02-26 14:14 | US_ITS ---
STUDY: ULTRASOUND OF THE FEMALE PELVIS - COMPLETE REASON FOR EXAM: Female, 24 years old. PAIN IN VAGINAL CANAL LMP: 01/31/2020 TECHNIQUE: Transabdominal and Transvaginal TECHNICAL QUALITY: Adequate. COMPARISON: None. FINDINGS: The uterus is anteverted and is in a midline position. The uterus measures 5.6 cm x 3.2 cm x 2.7 cm. Normal uterine cervix. The endometrium measures 2.0 mm in thickness, and is hyperechoic. There is no demonstrated endometrial mass. There is no demonstrated myometrial mass. I.U.D. - The patient does not have an I.U.D. The right ovary is visualized. The right ovary measures 2 cm x 2.4 cm x 1.1 cm. There is no right ovarian cyst or ovarian mass. There is no visualized right adnexal mass or complex lesion. There is normal arterial and normal venous vascularity. The left ovary is non-visualized. There is minimal fluid in the cul-de-sac. The pre void volume of the bladder was 207 ml. Polycystic ovary disease: No. US/Pelvic (Non ) IMPRESSION: Normal female pelvis. Electronically Signed: Cam Perdomo, at 15:35 EDT , Service support ,
== END ==
PROVIDERS: PCP Family Medicine
DX: R10.2 Pelvic and perineal pain (principal)
CPT/HCPCS: 76830; 76856

== ENCOUNTER 2020-05-21 11:14 | Emergency (ER) | payer MEDICAID, SELFPAY ==
[2020-05-21 11:15] VITALS: BP 133/74; PULSE 109; RESP 16; TEMP 35.7; O2SAT 98; BMI 31.4
--- NOTE | 2020-05-21 11:28 | EKG12_ITS ---
Test Reason : CP Blood Pressure : / mmHG Vent. Rate : 100 BPM Atrial Rate : 100 BPM P-R Int : 128 ms QRS Dur : 090 ms QT Int : 346 ms P-R-T Axes : 036 046 -31 degrees QTc Int : 446 ms Normal sinus rhythm ST & T wave abnormality, consider inferior ischemia ST & T wave abnormality, consider anterolateral ischemia Abnormal ECG Confirmed by GABRIEL SOTO, RISHI ([id number]), publications editor CYNTHIA ANDERSON ([id number]) on 05/25/2020 9:05:27 AM Referred By: BARBIE Confirmed By:RISHI RIOS MD
--- NOTE | 2020-05-21 11:29 | ED.DCSUM_ITS ---
History of Present Illness Chief Complaint: Chest Pain Informant: Patient Onset: Yesterday, Hours Context: Sudden Onset Timing: Continuous Quality: Patient reports fever, chest pain and shortness of breath Location: Not applicable Current Severity: Mild Maximum Severity: Moderate Worsened by: Breathing Relieved by: Nothing Associated Symptoms: Documented temperature 100.4 ?F, shortness of breath Narrative: Patient is a 24-year-old who presents with chest discomfort that is mid sternal with a pleuritic component, shortness of breath and temperature of 100.4 ?F. Patient is on hormonal therapy. There is family history of DVT. She denies history of VTE. She does report mild nasal congestion and mild cough. She denies leg pain, swelling or discoloration. She denies nausea or vomiting. She reports soft watery stool. She denies dysuria, frequency, urgency or hematuria. Patient denies symptoms of . Patient denies double vision, blurred vision or loss of vision. She denies photophobia, neck pain or neck stiffness. Prior similar symptoms: No Recent Illness/Hospitalization: No - Past Medical History (1) Depression Status: Chronic Past Medical History - Allergies and Home Meds Allergies/Adverse Reactions: Allergies No Known Allergies Allergy (Verified 05/21/20 11:15) Primary Care Physician: Verónica De Los Santos MD [Primary Care Provider] - Prior records reviewed: No Surgical History: no surgical history Lives: Alone Smoking Status: Never smoker Alcohol: None Drugs: None Review of Systems General: Reports: Chills, Fever, Malaise. Denies: Subjective, Sweats Eyes: Denies: Visual changes - bilaterally, Blurred Vision - bilaterally ENT: Reports: Rhinorrhea. Denies: Bilateral ear pain, Sore throat Cardiovascular: Reports: Chest pain. Denies: Palpitations, Heart racing Respiratory: Reports: Dyspnea, Cough, Dyspnea on exertion. Denies: Orthopnea, Paroxysmal nocturnal dyspnea Gastrointestinal: Reports: Nausea. Denies: Abdominal pain, Vomiting, Diarrhea, Melena, Hematochezia Genitourinary: Denies: Dysuria, Hematuria Musculoskeletal: Denies: Myalgias, Arthralgias, Neck pain, Back pain, Swelling, Extremity Pain Skin: Denies: Rash, Wounds Neurological: Reports: Headache. Denies: Weakness, Parasthesia, Numbness Psych: Reports: Depression. Denies: Anxiety, Suicidal thoughts Hematologic: Denies: Easy bruising, Easy bleeding Physical Exam Vital Signs/Narrative: Vital Signs Temp Pulse Resp BP Pulse Ox 05/21/20 11:15 96.2 F L 109 H 16 133/74 H 98 Inital Vital Signs reviewed: Yes General: Well nourished, Well developed, Obese, No Acute Distress Head: Normocephalic, Atraumatic Eyes: Perrl, EOMI. Negative for: Pale conjunctiva, Scleral icterus ENT: Moist mucous membranes, No rhinorrhea Neck: Supple, Nontender Cardiovascular: Regular rhythm, No murmurs, Tachycardia Respiratory: No distress, CTA bilaterally, Chest nontender Abdomen: Soft, Nontender, Nondistended, Normal bowel sounds, No masses Back: Nontender, Normal Inspection Extremities: Nontender, No edema, - - There is no asymmetry, swelling, discoloration, leg vein distention, palpable cords or tenderness along the distribution of the deep venous system. Skin: No rash, Pallor. Negative for: Normal color, Cyanosis, Diaphoresis, Jaundice, No Trauma Neurological: Alert, Oriented x3, Cranial nerves II-XII grossly intact, Normal Strength, Normal Sensation, Normal DTR, - - There is no clonus or Babinski sign. Psychological: Normal Mood, Depressed Diagnostic/Tx/Re-eval Chest X-Ray - ED: 1 View, Read by ED Physician, Normal, Heart, Lungs, Mediastinum, Bony Structures, No Acute Disease, - - X ray interpreted by me at 1140. Impressions Chest X-Ray 05/21/20 11:40 IMPRESSION: No acute cardiopulmonary findings Electronically Signed: Roberto Carlos Grey DO at 11:49 EST Tel , Service support , 05/21/20 11:40 Chest 1 View (Portable) [RAD] Stat 05/21/20 12:00 Mucosa - Nose SARS-CoV-2 Antigen (Rapid) - Final Laboratory Results 05/21/20 05/21/20 05/21/20 13:20 13:20 13:20 WBC 5.2 RBC 4.58 Hgb 13.9 Hct 42.7 MCV 93.2 MCH 30.3 MCHC 32.6 RDW Std Deviation 41.4 RDW Coeff of Angelia 11.9 Plt Count 290 MPV 8.6 Immature Gran % (Auto) 0.400 Neut % (Auto) 75.6 H Lymph % (Auto) 13.5 L [place] % (Auto) 9.3 Eos % (Auto) 0.6 Baso % (Auto) 0.6 Absolute Neuts (auto) 3.9 Absolute Lymphs (auto) 0.70 L Nucleated RBC % 0 D-Dimer Quant (PE/DVT) 0.47 Sodium 140 Potassium 3.7 Chloride 109 H Carbon Dioxide 27.0 Anion Gap 4 L BUN 7 Creatinine 0.87 Estim Creat Clear Calc 92.54 Est GFR (MDRD) Af Amer 102 Est GFR (MDRD) Non-Af 84 BUN/Creatinine Ratio 8.1 L Glucose 102 Lactic Acid Calcium 9.5 Total Bilirubin 0.60 AST 192 H ALT 183 H Alkaline Phosphatase 91 Total Protein 7.7 Albumin 3.9 Globulin 3.8 Albumin/Globulin Ratio 1.0 05/21/20 13:20 WBC RBC Hgb Hct MCV MCH MCHC RDW Std Deviation RDW Coeff of Angelia Plt Count MPV Immature Gran % (Auto) Neut % (Auto) Lymph % (Auto) [place] % (Auto) Eos % (Auto) Baso % (Auto) Absolute Neuts (auto) Absolute Lymphs (auto) Nucleated RBC % D-Dimer Quant (PE/DVT) Sodium Potassium Chloride Carbon Dioxide Anion Gap BUN Creatinine Estim Creat Clear Calc Est GFR (MDRD) Af Amer Est GFR (MDRD) Non-Af BUN/Creatinine Ratio Glucose Lactic Acid 2.1 H* Calcium Total Bilirubin AST ALT Alkaline Phosphatase Total Protein Albumin Globulin Albumin/Globulin Ratio - EKG Initial EKG Interpretation: Sinus Rhythm - Sinus rhythm with a ventricular rate of 100. OR interval is 128. QRS duration 90 ms. QT duration 346 ms. Farley is normal. There is flipped T waves in the inferior as well as anterior leads. This is essentially unchanged from December 29, 2019. The T wave inversion is more prominent in V2 today comp Prior: Unchanged - Medical Decision Making Patient presents with symptoms that are concerning for viral infection and Covid, pulmonary embolus doubt coronary ischemia. Patient is not PERC negative; therefore, will obtain a D-dimer. Chest x-ray was obtained to rule in/rule out pulmonary etiology of her chest discomfort and fever. Basic metabolic panel was obtained to assess electrolytes and renal function. CBC to assess white count and H&H. Patient was informed of her test results. She was informed that this probably represents a viral infection. She was instructed follow-up with her doctor for repeat blood work in a week. ED Disposition - Plan for ED Patient: Disposition: Home or Assisted Living Diagnosis: Chest pain, Fever, Dyspnea, Lactic acidosis, Elevated liver transaminase level Instructions: ED Chest Pain NonCardiac, ED FUO Adult Referrals: Verónica De Los Santos MD [Primary Care Provider] - 3-5 Days if not improving Additional Instructions: 1. Take either 4 Advil every 8 hours for the next several days for the chest discomfort and fever or 2 Aleve every 12 hours for the next several days. 2. If your shortness of breath worsens or anything changes that concerns you return to the emergency department
--- NOTE | 2020-05-21 11:40 | RAD_ITS ---
STUDY: X-RAY CHEST REASON FOR EXAM: Female, 24 years old. CHEST PAIN TECHNIQUE: Single AP portable view of the chest. COMPARISON: None. FINDINGS: Body jewelry. Cardiac silhouette unremarkable. Pulmonary vascularity unremarkable. Aorta unremarkable. No focal patchy airspace opacities. No pleural effusions. Upper abdomen unremarkable. Osseous structures intact. No pneumothorax. RAD/Chest 1 View (Portable) IMPRESSION: No acute cardiopulmonary findings Electronically Signed: Roberto Carlos Grey DO at 11:49 EST Tel , Service support ,
[2020-05-21 13:34] VITALS: PULSE 91; RESP 14; O2SAT 96
[2020-05-21 13:38] LABS: Absolute Neutrophil Count 3.9 X10^3/uL (2.0-7.7); Basophil# 0.03 X10^3/uL; Basophil% 0.6 % (0-1); Eosinophil# 0.03 X10^3/uL; Eosinophils% 0.6 % (0-5); Hematocrit 42.7 % (37-47); Hemoglobin 13.9 g/dL (12.0-15.0); Lymphocyte % 13.5 % (19-41); Mean Corp Hgb Conc 32.6 g/dL (32-36); Mean Corpuscular Hgb 30.3 pg (27.0-32.0); Mean Corpuscular Volume 93.2 fL (81-99); Mean Platelet Vol. 8.6 fl (6.2-12.0); Monocyte# 0.48 X10^3/uL; Monocyte% 9.3 % (0-10); NRBC Flagged by Analyzer 0 % (0-5); Neutrophil # 3.91 X10^3/uL (2.7-7.7); Neutrophil % 75.6 % (47-70); Platelet Count 290 K/mm3 (150-450); RBC Distribution Width CV 11.9 % (11.6-14.6); RBC Distribution Width SD 41.4 fl (35.1-43.9); Red Blood Count 4.58 M/mm3 (4.2-5.4); White Blood Count 5.2 K/mm3 (4.4-11.0)
[2020-05-21 13:39] VITALS: BP 112/78; PULSE 91; RESP 14; O2SAT 96
[2020-05-21 13:48] LABS: D-Dimer Quantitative (DVT/PE) 0.47 FEU/ug/m (0.27-0.49)
[2020-05-21 13:56] LABS: AST(SGOT) 192 U/L (15-37); Alanine Aminotransfer ALT/SGPT 183 U/L (13-56); Albumin, Serum 3.9 g/dL (3.2-5.0); Alkaline Phosphatase 91 U/L (45-117); Anion Gap 4 (5-15); BUN 7 mg/dL (7-18); BUN/Creat Ratio 8.1 RATIO (10-20); Calcium,Total 9.5 mg/dL (8.5-10.1); Chloride 109 mmol/L (98-107); Creatinine, Serum 0.87 mg/dL (0.55-1.02); EST Glomerular Filtration Rate 84 mL/min (>60); Est Glom Filt Rate - Afr Amer 102 mL/min (>60); Estimated Creatinine Clearance 92.54 ml/min; Globulin 3.8 g/dL (2.2-4.2); Glucose 102 mg/dL (74-106); Potassium 3.7 mmol/L (3.5-5.1); Protein, Total 7.7 g/dL (6.4-8.2); Sodium Level 140 mmol/L (136-145)
[2020-05-21 14:04] LABS: Lactic Acid 2.1 mmol/L (0.4-1.9)
[2020-05-21 14:30] VITALS: BP 120/69; PULSE 85; RESP 16; O2SAT 99
[2020-05-21 17:32] LABS: Reflex Lactate? Y
== END 2020-05-21 14:31 | disposition home or self-care (01) ==
PROVIDERS: Emergency Provider Emergency Medicine; PCP Family Medicine
DX: R07.9 Chest pain, unspecified (principal); R50.9 Fever, unspecified; R06.00 Dyspnea, unspecified; E87.2 Acidosis; R74.01 Elevation of levels of liver transaminase levels; Z82.49 Family history of ischemic heart disease and other diseases of the circulatory system; F32.9 Major depressive disorder, single episode, unspecified; R05 Cough; R09.81 Nasal congestion; R06.02 Shortness of breath
CPT/HCPCS: 71045; 80053; 83605; 85025; 85379; 87040; 87426; 93005; 99285; A4216

== ENCOUNTER → 2020-10-04 15:00 | Outpatient (CLI) | payer MEDICAID, SELFPAY | PROVIDERS: PCP Family Medicine; Referring Provider Family Medicine; Visit Provider Family Medicine | DX: R30.0 Dysuria (principal) | CPT/HCPCS: 87086 ==

== ENCOUNTER → 2021-12-12 | Outpatient (CLI) | payer OTHER, SELFPAY ==
[2021-12-15 18:53] LABS: HPV Reflexed? NOT INDICATED
== END | disposition home or self-care (01) ==
LOC: LABSPEC 16:07
PROVIDERS: PCP Family Medicine; Visit Provider Obstetrics & Gynecology
DX: Z12.4 Encounter for screening for malignant neoplasm of cervix (principal)
CPT/HCPCS: 88175; G0145

== ENCOUNTER → 2022-04-03 | Outpatient (CLI) | payer OTHER, SELFPAY | END | disposition home or self-care (01) | LOC: SL 10:43 | PROVIDERS: PCP Family Medicine; Visit Provider Family Medicine | DX: Z00.00 Encounter for general adult medical examination without abnormal findings (principal) ==

== ENCOUNTER → 2022-04-24 | Outpatient (CLI) | payer OTHER, SELFPAY | END | disposition home or self-care (01) | LOC: SL 07:23 | PROVIDERS: PCP Family Medicine; Visit Provider Family Medicine | DX: Z46.89 Encounter for fitting and adjustment of other specified devices (principal) ==

== ENCOUNTER → 2022-10-10 | Outpatient (CLI) | payer OTHER, MEDICAID, SELFPAY ==
[2022-10-10 15:52] LABS: Absolute Lymphocyte Count 2.65 X10^3/uL (0.83-4.51); Absolute Neutrophil Count 3.2 X10^3/uL (2.0-7.7); Basophil# 0.06 X10^3/uL; Basophil% 0.9 % (0-1); Eosinophil# 0.15 X10^3/uL; Eosinophils% 2.3 % (0-5); Hematocrit 42.1 % (37-47); Hemoglobin 14.6 g/dL (12.0-15.0); Lymphocyte # 2.65 X10^3/ul (0.83-4.51); Lymphocyte % 41.3 % (19-41); Mean Corp Hgb Conc 34.7 g/dL (32-36); Mean Corpuscular Hgb 29.9 pg (27.0-32.0); Mean Corpuscular Volume 86.3 fL (81-99); Mean Platelet Vol. 8.8 fl (6.2-12.0); Monocyte# 0.35 X10^3/uL; Monocyte% 5.5 % (0-10); NRBC Flagged by Analyzer 0 % (0-5); Neutrophil % 49.8 % (47-70); Platelet Count 428 K/mm3 (150-450); RBC Distribution Width CV 12.3 % (11.6-14.6); RBC Distribution Width SD 38.6 fl (35.1-43.9); Red Blood Count 4.88 M/mm3 (4.2-5.4); White Blood Count 6.4 K/mm3 (4.4-11.0)
[2022-10-10 16:24] LABS: Hemoglobin A1c 4.9 % (3.8-5.6)
[2022-10-10 16:28] LABS: Estradiol 55.8 pg/mL; Follicle Stimulating Hormone 4.7 mIU/mL; Luteinizing Hormone 7.5 mIU/mL; Prolactin 4.4 ng/mL; Thyroid Stim Hormone (TSH) 1.23 uIU/mL (0.358-3.74)
[2022-10-13 22:07] LABS: Testosterone, % Free 1.73 % (0.50-2.80); Testosterone, Free 0.26 ng/dL (0.10-0.85); Testosterone, Total 15 ng/dL (13-71)
== END | disposition home or self-care (01) ==
LOC: WOBLAB 14:56
PROVIDERS: PCP Family Medicine; Visit Provider Obstetrics & Gynecology
DX: N93.9 Abnormal uterine and vaginal bleeding, unspecified (principal)
CPT/HCPCS: 36415; 82670; 83001; 83002; 83036; 84146; 84402; 84403; 84439; 84443; 85025

== ENCOUNTER → 2024-03-22 | Outpatient (CLI) | payer OTHER, SELFPAY ==
[2024-03-22 10:37] LABS: Cholesterol 195 mg/dL (200); Glucose 111 mg/dL (74-106); High Density Lipoprotein 46 mg/dL; Thyroid Stim Hormone (TSH) 0.782 uIU/mL (0.358-3.740); Triglycerides 86 mg/dL; Very Low Density Lipoprotein 17 mg/dL (5-40)
[2024-03-24 08:03] LABS: Vitamin D,25 Hydroxy 33.9 ng/mL
[2024-03-29 12:09] LABS: Testosterone, % Free 2.86 % (0.50-2.80); Testosterone, Free 0.23 ng/dL (0.10-0.85); Testosterone, Total 8 ng/dL (13-71); Thyroid Peroxidase AB < 9 IU/mL (0-34)
== END | disposition home or self-care (01) ==
PROVIDERS: PCP Family Medicine; Referring Provider Obstetrics & Gynecology; Visit Provider Obstetrics & Gynecology
DX: E28.2 Polycystic ovarian syndrome (principal); Z13.220 Encounter for screening for lipoid disorders; Z13.1 Encounter for screening for diabetes mellitus; Z13.29 Encounter for screening for other suspected endocrine disorder; Z83.49 Family history of other endocrine, nutritional and metabolic diseases
CPT/HCPCS: 36415; 80061; 82306; 82627; 82947; 84402; 84403; 84443; 86376; 82626

== ENCOUNTER → 2025-03-27 | Outpatient (CLI) | payer OTHER, SELFPAY ==
[2025-03-27 13:03] LABS: Cholesterol 191 mg/dL (<=200); Glucose 94 mg/dL (70-99); Low Density Lipoprotein Calc. 123 mg/dL; Triglycerides 72 mg/dL; Very Low Density Lipoprotein 14 mg/dL (5-40); Vitamin D,25 Hydroxy 28.1 ng/mL (30-100); cholesterol:hdl ratio screen 3.59
[2025-04-03 10:09] LABS: HPV APTIMA, High Risk Negative (Negative)
== END | disposition home or self-care (01) ==
PROVIDERS: PCP Family Medicine; Visit Provider Obstetrics & Gynecology
DX: Z12.4 Encounter for screening for malignant neoplasm of cervix (principal); Z13.29 Encounter for screening for other suspected endocrine disorder; Z13.220 Encounter for screening for lipoid disorders; Z13.1 Encounter for screening for diabetes mellitus; I10 Essential (primary) hypertension; F32.9 Major depressive disorder, single episode, unspecified; Z83.49 Family history of other endocrine, nutritional and metabolic diseases; E28.2 Polycystic ovarian syndrome
CPT/HCPCS: 36415; 80061; 82306; 82947; 84443; 87624; 88175; G0145